=== PATIENT | female | born 1985 | race Hispanic/Latino ===

== ENCOUNTER 2025-03-26 08:14 | Emergency (ER) | payer SELFPAY ==
[~2025-03-26] VITALS: Ht 162.6 cm; Wt 104.3 kg
[2025-03-26 08:18] VITALS: TEMP 98.1
--- NOTE | 2025-03-26 08:53 | EKG ---
[facility] Test Date: 2025-03-26 Test Time: 08:14:53 Pat Name: KARTHIK GREENE Department: ED Room: Gender: F Cheesemaker: [id number] : 1985 Requested By: IRISH RAMIREZ Order Number: [id number] Reading MD: Ralph Fontanez Measurements Intervals [place] Rate: 72 P: 11 PA: 140 QRS: 27 QRSD: 92 T: 29 QT: 397 QTc: 435 Interpretive Statements Sinus rhythm No previous ECG available for comparison Electronically Signed On 03-26-2025 18:31:15 CDT by Ralph Fontanez Please click the below link to view image of tracing.
--- NOTE | 2025-03-26 09:01 | NUR ---
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
[2025-03-26 09:19] LABS: IMMATURE GRANULOCYTE ABSOLUTE 0.02 K/uL (0-1); NUCLEATED RED BLOOD CELLS 0.0 % (0.0-0.19); PLATELET COUNT (AUTO) 287 K/uL (130-400); RED BLOOD CELL COUNT(AUTO) 4.25 MIL/uL (4.00-5.50); RED CELL DISTRIBUTION WIDTH 15.1 % (11.0-15.5); WHITE BLOOD COUNT (AUTO) 6.5 K/uL (4.8-10.8)
[2025-03-26 09:31] LABS: CREATININE 0.8 mg/dL (0.5-1.0); GLOMERULAR FILTR. RATE CALC 96.0 mL/min (>90); GLUCOSE,RANDOM 93.0 mg/dL (70-105); SODIUM SERUM 136.0 mmol/L (136-145); UREA NITROGEN, BLOOD 14.0 mg/dL (7-18)
[2025-03-26 09:36] LABS: ASPARTATE AMINOTRANSFERASE 33.0 U/L (10-37); TOTAL PROTEIN, SERUM 7.5 g/dL (6.0-8.3)
--- NOTE | 2025-03-26 09:59 | HMCIMG ---
EXAM: CR Chest, 1 View. CLINICAL HISTORY: cp COMPARISON: None provided. FINDINGS: LUNGS: The lungs show no infiltrate or other acute finding. PLEURAL SPACES: No evidence of pleural effusion or pneumothorax. MEDIASTINUM: Mild cardiomegaly. Pulmonary vasculature and interstitial markings are within normal limits. BONES: No acute osseous abnormality. IMPRESSION: Mild cardiomegaly. /[place]
--- NOTE | 2025-03-26 10:02 | NUR ---
PT PLACED IN HALLWAY BED D1
--- NOTE | 2025-03-26 10:58 | ERN ---
ED Note History of Present Illness Stated Complaint: C/P, HEADACHE Chief Complaint: Chest Pain Time Seen by MD: 08:18 Dictation: 39-year-old female with atypical chest pain and headaches on and off for the past few weeks worse today. Sharp in nature no pain now. Allergies: Coded Allergies: morphine (Unverified Allergy, Unknown, 03/26/25) peanut (Unverified Allergy, Unknown, 03/26/25) Past Medical History Past Medical History: No Pertinent History Surgical History: None Review of System Dictation Constitutional: Negative for fever,chills, and weight loss Eyes: Negative for injury, pain,redness, and discharge ENT: Negative for injury,pain or swelling Cardiovascular: Per HPI Respiratory: Negative for shortness of breath, cough, and wheezing, Abdomen/GI: Negative for abdominal pain, nausea, vomiting, diarrhea, and constipation Back: Negative for injury and pain : Negative for injury, bleeding and discharge MS/Extremity: Negative for injury and deformity Skin: Negative for rash, and discoloration Neuro: Negative for headache, weakness, numbness, tingling, and seizure Psych: Negative for suicide ideation, homicidal ideation, and hallucinations Initial Vital Sign VS Vital Signs Date Time Temp Pulse Resp B/P (MAP) Pulse Ox O2 Delivery O2 Flow Rate FiO2 03/26/25 08:18 98.1 101 18 131/91 0 03/26/25 10:00 100 Room Air* 21 Physical Exam Dictation General: awake, alert, NAD Head/Face: Normocephalic, atraumatic Eyes: PERRL, EOMI, vision at baseline ENT: oral cavity clear, TMs clear, no signs of infection Neck: Trachea midline, supple, no nuchal rigidity Cardiovascular: RRR, normal S1/S2, No MRGs, no JVD Respiratory: CTAB, no respiratory distress, No rales or wheezes Abdomen: Soft, non-tender, non-distended, normal bowel sounds, no guarding or rebound. Skin: Warm, dry, normal turgor, no rash MS/Extremity: Pulses equal, no cyanosis, neurovascular intact, FROM Neuro: COAx4, GCS 15, strength 5/5, CN 2-12 intact, normal cerebellar exam, normal gait, Psych: Normal behavior, mood, and affect normal Results (Laboratory/Radiology) Laboratory/Radiology Laboratory Tests Test 03/26/25 09:05 White Blood Count 6.5 K/uL (4.8-10.8) Red Blood Count 4.25 MIL/uL (4.00-5.50) Hemoglobin 11.2 g/dL (12.0-16.0) L Hematocrit 34.6 % (36-48) L Mean Corpuscular Volume 81.4 fL (79-99) Mean Corpuscular Hemoglobin 26.4 pg (27.0-33.0) L Mean Corpuscular Hemoglobin Concent 32.4 g/dL (32.0-36.0) Red Cell Distribution Width 15.1 % (11.0-15.5) Platelet Count 287 K/uL (130-400) Mean Platelet Volume 11.2 fL (7.5-10.5) H Immature Granulocyte % (Auto) 0.3 % (0-1) Neutrophils (%) (Auto) 73.9 % (40.0-77.0) Lymphocytes (%) (Auto) 18.9 % (21.0-51.0) L Monocytes (%) (Auto) 5.4 % (3.0-13.0) Eosinophils (%) (Auto) 1.2 % (0.0-8.0) Basophils (%) (Auto) 0.3 % (0.0-5.0) Neutrophils # (Auto) 4.8 K/uL (1.8-7.7) Lymphocytes # (Auto) 1.2 K/uL (1.0-4.8) Monocytes # (Auto) 0.4 K/uL (0.1-1.0) Eosinophils # (Auto) 0.08 K/uL (0.00-0.70) Basophils # (Auto) 0.02 K/uL (0.00-0.20) Absolute Immature Granulocyte (auto 0.02 K/uL (0-1) Nucleated Red Blood Cells 0.0 % (0.0-0.19) Sodium Level 136 mmol/L (136-145) Potassium Level 3.8 mmol/L (3.5-5.1) Chloride Level 102 mmol/L (101-111) Carbon Dioxide Level 30 mmol/L (21-32) Blood Urea Nitrogen 14 mg/dL (7-18) Creatinine 0.8 mg/dL (0.5-1.0) Glomerular Filtration Rate Calc 96 mL/min (>90) Random Glucose 93 mg/dL (70-105) Total Calcium 8.8 mg/dL (8.5-10.1) Total Bilirubin 0.3 mg/dL (0.2-1.0) Direct Bilirubin 0.1 mg/dL (0.0-0.3) Aspartate Amino Transf (AST/SGOT) 33 U/L (10-37) Alanine Aminotransferase (ALT/SGPT) 75 U/L (12-78) Alkaline Phosphatase 84 U/L (50-136) Troponin I High Sensitivity 5 ng/L (4-50) B-Type Natriuretic Peptide 29 pg/mL (0-100) Total Protein 7.5 g/dL (6.0-8.3) Albumin 3.3 g/dL (3.5-5.0) L Labs Reviewed?: Yes EKG Comment: Heart rate 72, normal sinus rhythm normal intervals ED Course ED Course Orders Procedure Category Date Status Time B-Type Natriuretic LAB 03/26/25 Complete Peptide 08:24 12 Lead Ekg Tracing- EKG 03/26/25 Complete Technical 08:24 Basic Metabolic Panel LAB 03/26/25 Complete 08:24 Cbc With Differential LAB 03/26/25 Complete 08:24 Hepatic Function Panel LAB 03/26/25 Complete 08:24 Troponin I High LAB 03/26/25 Complete Sensitivity 08:24 Chest 1vw RAD 03/26/25 Resulted 08:24 Vital Signs Date Time Temp Pulse Resp B/P (MAP) Pulse Ox O2 Delivery O2 Flow Rate FiO2 03/26/25 10:00 60 17 142/76 100 Room Air* 0 21 03/26/25 08:18 98.1 101 18 131/91 0 Medical Decision Making MDM MDM: Differential diagnosis: Rationale: Tests considered and ordered secondary to shared decision making include: Previous outside records reviewed: Old ER visits. Risk of complication and/or morbidity or mortality of patient management: None Medications-Per medication reconciliation Need for hospitalization: Patient does not meet criteria for hospitalization. Need for emergency major/minor surgery: No There are no social concerns with this patient. Prescription drug management Prescriptions will include symptomatic care Patient's prior external medical records from other ER visits were reviewed by me as indicated. Prior testing and results from previous visits were reviewed. Prior tests were taken into account with medical decision making and resource utilization, independent historian/historians were used to obtain complete medical history. I independently interpreted the test that were performed, results were reviewed by me and considered findings on radiology if ordered. Medical management and examination interpretation discussions were had by me with other qualified healthcare professionals as indicated for the patient's care. Atypical chest pain heart score 0 stable for discharge negative workup. DX & DISP Disposition: Discharge Departure Impression: Primary Impression: Chest pain Condition: Stable Referrals: SELF,REFERRAL (PCP) IRISH RAMIREZ MD Mar 26, 2025 10:58
[2025-03-26 11:02] VITALS: BP 151/79; PULSE 71; RESP 14; O2SAT 100
--- NOTE | 2025-03-26 11:03 | NUR ---
ADDITIONAL EDUCATION PROVIDED FOR ANXIETY D/T HER RECENT LOSS OF TWO FAMILY MEMBERS
== END 2025-03-26 11:10 | disposition home or self-care (01) ==
LOC: EDH 08:14
DX: R07.89 Other chest pain (principal); Z88.5 Allergy status to narcotic agent; Z91.010 Allergy to peanuts
CPT/HCPCS: 36415; 71045; 80048; 80076; 83880; 84484; 85025; 93005; 99285